=== PATIENT | male | born 1965 | race Caucasian/White ===

== ENCOUNTER 2021-10-30 06:00 | Day surgery (SDC) | payer OTHER ==
[~2021-10-30] VITALS: Ht 172.7 cm; Wt 83.3 kg
[~2021-10-30 06:00] MED LIST: ALFU10 PO; BLADDER PILL; Benadryl 50 mg50 MG PO; CEPH500 PO; HYDACE5 PO; IMMODIUM AD PO; METPRE4DP PO; MYRBETRIQ50 MG PO; OMEP20ER; PRAV20; PRAV20 PO; PRAVASTATIN SOD10 MG; Percocet 5-3251 EACH PO; Rapaflo8 MG PO; TAMS.4ER PO; TRAZ100; TRAZ100 PO; XOLAIR75 MG/0.5 SC; XYZAL5 MG PO; ZOLAIR INJ
[2021-10-30] MEDS ORDERED: Pravastatin Sod80 MG PO (06:42)
--- NOTE | 2021-10-30 12:34 | NUR ---
PATIENT ARRIVED FROM PACU TODAY 10/30/21 AT 1120. POD 0 LEFT TOTAL KNEE PATIENT IS A&OX4. HR IS MARISOL WELL BP BUT PATIENT DENIES HAVING SYMPTOMS OF LIGHT HEADEDNESS OR DIZZINESS. IV FLUIDS ARE RUNNING. PATIENT HAD A SPINAL AND HAS NO FEELING FROM WAIST DOWN (L3 DERMATOME). SUHAS WRAP ON THE RIGHT KNEE IS C/D/I. PEDAL PULSES ARE STRONG. PATIENT DENIES NAUSEA/VOMITING AND IS TOLERATING PO INTAKE. PATIENT IS LAYING IN BED WITH FRIEND AT BEDSIDE. CALL LIGHT WITHIN REACH.
--- NOTE | 2021-10-30 13:17 | NUR ---
ACCORDING TO THE VITALS MACHINE IN ROOM PATIENTS HR WILL INTERMITTENTLY DROP FROM 50BPM TO 30BPM BUT THEN BACK UP TO 50BPM. PATIENT DENIES ANY CARDIAC HX AND DOES NOT TAKE ANY CARDIAC MEDICATIONS AT HOME. PATIENT ALSO DENIES SHORTNESS OF BREATH, DIZZINESS, OR LIGHTHEADEDNESS WHEN HIS HR DROPS BELOW 50BPM. PATIENT IS LAYING IN BED EATING LUNCH AND DENIES NAUSEA/VOMITING. CALL LIGHT WITHIN REACH. EDUCATED PATIENT IF HE STARTS TO HAVE SYMPTOMS OF LIGHTHEADEDNESS OR DIZZINESS TO USE TO CALL LIGHT. PATIENT VERBALIZED UNDERSTANDING. CALLED [place] DR. LOZADA AND TOLD HIM ABOUT THE SITUATION. DR. LOZADA THEN REQUESTED THIS NURSE TO PUT IN ORDERS FOR TELE, 12 LEAD EKG, CBC, CMP, AND MAG LAB DRAW IN STAT. DR. LOZADA THEN SAID ONCE THE RESULTS CAME IN FROM THOSE ORDERS THAT HE WOULD VIEW THE OUTCOMES AND COME VISIT WITH THE PATIENT. LABS WERE JUST DRAWN WELL THE 12 LEAD. TELE IS BEING PLACED NOW. WILL CONTINUE TO MONITOR FOR SYMPTOMS OF LIGHTHEADEDNESS/DIZZINESS AND WELL MONITOR HR.
[2021-10-30 13:25] LABS: BASOPHILS ABSOLUTE AUTO 0.02 K/mm3 (0.00-0.23); BASOPHILS PERCENT AUTO 0 % (0-2); EOSINOPHILS PERCENT AUTO 0 % (0-6); Hematocrit 38.4 % (37.0-53.0); Hemoglobin 12.9 g/dL (13.5-17.5); IMMATURE GRAN ABSOLUTE AUTO 0.04 K/mm3 (0.00-0.10); IMMATURE GRAN PERCENT AUTO 1 % (0-1); LYMPHOCYTES ABSOLUTE AUTO 0.44 K/mm3 (0.84-5.20); LYMPHOCYTES PERCENT AUTO 5 % (21-46); MONOCYTES ABSOLUTE AUTO 0.07 K/mm3 (0.16-1.47); MONOCYTES PERCENT AUTO 1 % (4-13); Mean Corpuscular HGB 31.3 pg (26.0-34.0); Mean Corpuscular HGB Conc 33.6 g/dL (31.5-36.5); Mean Corpuscular Volume 93 fL (80-100); Mean Platelet Volume 10.7 fL (9.1-12.4); NEUTROPHILS ABSOLUTE AUTO 7.64 K/mm3 (1.96-9.15); NEUTROPHILS PERCENT AUTO 93 % (41-73); Platelet Count 225 K/mm3 (150-400); RDW Coefficient Variation 12.9 % (11.7-14.2); RDW Standard Deviation 44.1 fL (35.1-46.3); Red Blood Cell Count 4.12 M/mm3 (4.30-5.90); White Blood Cell Count 8.21 K/mm3 (4.00-11.30)
[2021-10-30 13:36] LABS: Albumin, Blood 3.3 g/dL (3.4-5.0); Albumin/Globulin Ratio 1.2 (0.8-1.8); Bilirubin, Total 0.2 mg/dL (0.1-1.0); Bun/Creatinine Ratio 25.3 (12.0-20.0); Calcium, Blood 8.6 mg/dL (8.5-10.1); Creatinine, Blood 0.83 mg/dL (0.60-1.20); Globulin, Blood 2.7 g/dL (2.2-4.0); Potassium, Blood 4.1 mmol/L (3.5-5.5)
--- NOTE | 2021-10-30 14:09 | NUR ---
SHIFT SUMMARY: POD 0 LEFT TOTAL KNEE PATIENT IS A&OX4. HR IS STILL MARISOL @ 50BPM AND IS INTERMITTENTLY DROPPING IN THE 30'S PER OFFICE SYSTEM ANALYST. PATIENT DENIES DIZZINESS OR LIGHTHEADEDNESS WHEN THIS HAPPENS. LABS AND 12 LEAD EKG ARE DONE AND TELE IS IN PLACE (SEE OTHER NURSING NOTE). OTHERWISE VS ARE WNL AND IS ON RA WITH >90% OXYGEN SATS. PATIENT DID RECIEVE A SPINAL BUT IS NOW ABLE TO MOVE LEGS AND TOES WITH NUMBNESS FROM KNEES DOWN. HE REPORTED 7/10 PAIN AND WAS GIVEN 2 PO KATHERINE'S. SUHAS WRAP ON LEFT KNEE IS C/D/I. POLAR PACK IN PLACE. IV IS RUNNING FLUIDS AND IS WNL. PATIENT IS TOLERATING PO INTAKE WITH NO NAUSEA OR VOMITING. PATIENT IS LAYING IN BED WATCHING TV. PATIENT HAS YET TO VOID BUT SHOULD BE BLADDER SCANNED NO LATER THAN 1630 SINCE THAT WOULD BE 6 HOURS SINCE THE LAST BLADDER SCAN. PATIENT REPORTS NO BLADDER PAIN OR FEELING OF NEEDING TO VOID AT THIS TIME. PATIENT WAS EDUCATED TO CALL ONCE HE IS FEELING BLADDER PAIN OR THE URGE TO VOID. PATIENT VERBALIZED UNDERSTANDING OF EDUCATION. CALL LIGHT WITHIN REACH. THE PLAN IS TO HAVE PAIN MANAGED AND WORK WITH PHYSICAL THERAPY WHEN NOT HAVING ANYMORE NUMBNESS OR TINGLING FROM SPINAL. WELL FIGURING OUT WHY THE PATIENTS HR DROPS INTERMITTENTLY. DR. LOZADA FROM [facility] IS AWARE AND STILL WAITING ON LAB RESULTS.
--- NOTE | 2021-10-30 14:44 | NUR ---
REPORT RECIEVED FROM SIMA ORDONEZ. ASSUMING PT CARE AT THIS TIME. PT IS A/O UPON ASSESSMENT. VSS. PT HELPED TO BATHROOM AND VOIDED. UP WITH SBA AND MOVED WELL, DENIED DIZZINESS. PT NOW IN RECLINER AND LLE ELEVATED, ICE PACK ON. CALL LIGHT IN REACH. WILL CTM.
--- NOTE | 2021-10-30 18:20 | NUR ---
SUMMARY: NO CHANGE SINCE ASSUMED CARE. PT DID GET TO WORK WITH THERAPY TONIGHT. IS WALKING TO BATHROOM WELL, HAS DENIED DIZZENESS. NO ACUTE EVENTS WITH TELE. PT IS VOIDING AND EATING WELL. WILL PASS REPORT TO ERICA RN.
[2021-10-31 05:23] LABS: BASOPHILS ABSOLUTE AUTO 0.04 K/mm3 (0.00-0.23); BASOPHILS PERCENT AUTO 0 % (0-2); EOSINOPHILS PERCENT AUTO 0 % (0-6); Hematocrit 34.3 % (37.0-53.0); Hemoglobin 11.7 g/dL (13.5-17.5); IMMATURE GRAN ABSOLUTE AUTO 0.11 K/mm3 (0.00-0.10); IMMATURE GRAN PERCENT AUTO 1 % (0-1); LYMPHOCYTES ABSOLUTE AUTO 1.54 K/mm3 (0.84-5.20); LYMPHOCYTES PERCENT AUTO 7 % (21-46); MONOCYTES ABSOLUTE AUTO 1.18 K/mm3 (0.16-1.47); MONOCYTES PERCENT AUTO 6 % (4-13); Mean Corpuscular HGB 31.2 pg (26.0-34.0); Mean Corpuscular HGB Conc 34.1 g/dL (31.5-36.5); Mean Corpuscular Volume 92 fL (80-100); Mean Platelet Volume 10.6 fL (9.1-12.4); NEUTROPHILS ABSOLUTE AUTO 18.05 K/mm3 (1.96-9.15); NEUTROPHILS PERCENT AUTO 86 % (41-73); Platelet Count 224 K/mm3 (150-400); RDW Coefficient Variation 12.6 % (11.7-14.2); RDW Standard Deviation 42.2 fL (35.1-46.3); Red Blood Cell Count 3.75 M/mm3 (4.30-5.90); White Blood Cell Count 20.92 K/mm3 (4.00-11.30)
[2021-10-31 05:43] LABS: Bun/Creatinine Ratio 21.2 (12.0-20.0); Calcium, Blood 8.8 mg/dL (8.5-10.1); Creatinine, Blood 0.9 mg/dL (0.60-1.20); Magnesium, Blood 2.1 mg/dL (1.6-2.4); Potassium, Blood 4.2 mmol/L (3.5-5.5)
--- NOTE | 2021-10-31 06:26 | NUR ---
SUMMARY PT CONTINUES TO HAVE HEART RATE IN 30'S AND 40'S. PT DENIES ANY DIZZINESS OR WEAKNESS. PT DRINKING FLUIDS AND VOIDING WELL. PT PAIN MANAGED WELL PER EMAR. PT HAS BEEN AMBULATING WELL WITHOUT ISSUE. PT HAS SLEPT SOME. CALL LIGHT IN REACH.
--- NOTE | 2021-10-31 11:24 | NUR ---
DISCHARGE SUMMARY PT A&OX4, VSS/RA, GAYLE PO, VOIDING WELL, AMB FWW & GB TO BRP/UP TO CHAIR, IV DC'D, TELE WAS NSR 70 BPM AT DC. LEFT FLOOR VIA WC WITH RN TO GO HOME WITH MOM, WITH ALL PERSONAL POSSESSIONS INCLUDING DC PACKET.
== END 2021-10-31 11:10 | disposition home or self-care (01) ==
LOC: SURS 06:00 → ORSCMMR 06:00 → ORD 07:30 → SURS 11:20 → ORSCMMR 10-31 11:10
PROVIDERS: Hospitalist; Orthopaedic Surgery
PROC: 8E0YXBZ Computer Assisted Procedure of Lower Extremity (ICD-10-PCS; principal; 2021-10-30 07:30)
PROC: 0SRD0J9 Replacement of Left Knee Joint with Synthetic Substitute, Cemented, Open Approach (ICD-10-PCS; principal; 2021-10-30 07:30)
DX: M17.12 Unilateral primary osteoarthritis, left knee (principal); Z87.891 Personal history of nicotine dependence; Z79.899 Other long term (current) drug therapy
CPT/HCPCS: 36415; 73560-LT; 80048; 80053; 83735; 85025; 93005; 93010; 97110; 97116; 97162; A9270; C1713; C1776; J0171; J0690; J0735; J1100; J1170; J1885; J2250; J2370; J2405; J2704; J2795; J3010; J7120

== ENCOUNTER 2023-11-18 10:30 | Day surgery (SDC) | payer OTHER ==
[2023-11-18] VITALS (14 sets, daily range): BP systolic 98–123; BP diastolic 50–87
[~2023-11-18] VITALS: Ht 172.7 cm; Wt 92.7 kg
[~2023-11-18 10:30] MED LIST changes: +Pravastatin Sod80 MG PO
[2023-11-18] MEDS ORDERED: Tranexamic Acid 100 ML IV SCH (11:15)
[2023-11-18] MEDS ORDERED: Acetaminophen 500 MG Tab PO SCH ×2 (11:15→16:00)
[2023-11-18] MEDS ORDERED: Chlorhexidine Mouth Care 15 ML UDC MT SCH (11:15)
[2023-11-18] MEDS ORDERED: OxyCODONE HCL 10 MG TABCR PO SCH (11:15)
[2023-11-18] MEDS ORDERED: Ropivacaine 0.5% HCl/Pf 123.125 MG,EPINEPHrine HCL 0.25 MG,Ketorolac Tromethamine 15 MG... INFIL SCH (11:15)
[2023-11-18] MEDS ORDERED: Lactated Ringer's 1,000 ML IV SCH ×2 (11:15→13:40)
[2023-11-18] MEDS ORDERED: CeFAZolin Sodium 2,000 MG in NS 100 ML IV SCH ×2 (11:15→22:00)
[2023-11-18] MEDS ORDERED: Vancomycin HCL 1,000 MG in NS 250 ML IV SCH (11:15)
[2023-11-18] MEDS ORDERED: Metoclopramide HCl 5MG / ML 2ML Vial IV PRN (13:40)
[2023-11-18] MEDS ORDERED: Magnesium Hydroxide Conc 10 ML UDC PO PRN (13:40)
[2023-11-18] MEDS ORDERED: Ondansetron HCl 2 MG / ML 2ML Vial IV PRN (13:40)
[2023-11-18] MEDS ORDERED: HYDROmorphone HCl/Pf 1MG SYR IV PRN (13:40)
[2023-11-18] MEDS ORDERED: Bisacodyl 10 MG Supp PR PRN (13:45)
[2023-11-18] MEDS ORDERED: Promethazine HCl 25 MG Tab PO PRN (13:45)
[2023-11-18] MEDS ORDERED: OxyCODONE HCL 5 MG TAB PO PRN ×2 (13:45)
[2023-11-18] MEDS ORDERED: DiphenhydrAMINE HCL 25 MG Cap PO PRN (13:45)
[2023-11-18] MEDS ORDERED: propofoL 100 ML IV ONE ×2 (13:47→15:32)
[2023-11-18] MEDS ORDERED: Midazolam HCl 1MG / ML 2ML Vial IV SCH (13:50)
[2023-11-18] MEDS ORDERED: propofoL 20 ML IV ONE (14:28)
[2023-11-18] MEDS ORDERED: FentaNYL Citrate 50 MCG/ML 2 ML Injection ONE (14:28)
[2023-11-18] MEDS ORDERED: Phenylephrine HCl 10mg/ml 1 ml Vial ONE (16:59)
[2023-11-18] MEDS ORDERED: Prochlorperazine Edisylate 10 mg Vial ONE (17:04)
[2023-11-18] MEDS ORDERED: Ondansetron HCl 2 MG / ML 2ML Vial ONE (17:04)
[2023-11-18] MEDS ORDERED: Midazolam HCl 1MG / ML 2ML Vial ONE (17:04)
[2023-11-18] MEDS ORDERED: Ketorolac Tromethamine 30mg Vial ONE (17:55)
[2023-11-18] MEDS ORDERED: Ketorolac Tromethamine 15mg Vial IV SCH (18:00)
--- NOTE | 2023-11-18 18:35 | NUR ---
PATIENT JUST ARRIVED FROM PACU TODAY. POD 0 RIGHT TOTAL KNEE PATIENT IS DROWSY BUT AWAKENS WITH VERBAL STIMULI AND RESPONDS APPROPRIATELY TO QUESTIONS. PATIENT DENIES PAIN AT THIS TIME DUE TO HIS SPINAL HE HAD DURING THE PROCEDURE. HE REPORTS NUMBNESS FROM THE TOP OF HIS KNEES DOWN BUT IS ABLE TO WIGGLE TOES. HIS RIGHT KNEE HAS SUHAS WRAP THAT IS C/D/I. PATIENT IS LAYING IN BED WITH CALL LIGHT IN REACH AND BED ALARM ON A PRECAUTION DUE TO HIM BEING VERY DROWSY.
[2023-11-18] MEDS ORDERED: Docusate Sodium 100 MG Cap PO SCH (21:00)
[2023-11-18] MEDS ORDERED: TraZODone HCl 100 MG Tab PO SCH (21:00)
[2023-11-19] MEDS ORDERED: Vancomycin HCL 1,000 MG in NS 250 ML IV SCH (01:00)
[2023-11-19 04:41] LABS: BASOPHILS ABSOLUTE AUTO 0.04 K/mm3 (0.00-0.23); BASOPHILS PERCENT AUTO 0 % (0-2); EOSINOPHILS PERCENT AUTO 0 % (0-6); Hematocrit 37.5 % (37.0-53.0); Hemoglobin 12.6 g/dL (13.5-17.5); IMMATURE GRAN ABSOLUTE AUTO 0.12 K/mm3 (0.00-0.10); IMMATURE GRAN PERCENT AUTO 1 % (0-1); LYMPHOCYTES ABSOLUTE AUTO 1.12 K/mm3 (0.84-5.20); LYMPHOCYTES PERCENT AUTO 5 % (21-46); MONOCYTES ABSOLUTE AUTO 1.07 K/mm3 (0.16-1.47); MONOCYTES PERCENT AUTO 5 % (4-13); Mean Corpuscular HGB Conc 33.6 g/dL (31.5-36.5); Mean Corpuscular Volume 92 fL (80-100); Mean Platelet Volume 9.8 fL (9.1-12.4); NEUTROPHILS PERCENT AUTO 89 % (41-73); Platelet Count 242 K/mm3 (150-400); RDW Coefficient Variation 12.8 % (11.7-14.2); RDW Standard Deviation 43.9 fL (35.1-46.3); Red Blood Cell Count 4.06 M/mm3 (4.30-5.90); White Blood Cell Count 21.25 K/mm3 (4.00-11.30)
[2023-11-19 04:58] LABS: Bun/Creatinine Ratio 20.2 (12.0-20.0); Calcium, Blood 8.2 mg/dL (8.5-10.1); Creatinine, Blood 0.89 mg/dL (0.60-1.20); Magnesium, Blood 1.9 mg/dL (1.6-2.4); Potassium, Blood 4.2 mmol/L (3.5-5.5)
--- NOTE | 2023-11-19 05:39 | NUR ---
SHIFT SUMMARY POD 1 R TKA PT ABLE TO GET SOME REST DURING THE NIGHT. PAIN MANAGED PER EMAR. PT TOLERATING PO INTAKE. VOIDING WELL. PT AMB TO AND FROM THE BATHROOM. 1P SBA WITH FWW AND GB. SUHAS TO THE R KNEE IS C/D/I. DENIES ANY N/T TO EXT'S. VSS. PLAN TO HAVE THERAPY THIS MORNING THEN D/C HOME. NO OTHER CONCERNS AT THIS TIME, CALL LIGHT WITHIN REACH
[2023-11-19 05:51] VITALS: BP 97/53
[2023-11-19 07:48] VITALS: BP 101/70
[2023-11-19] MEDS ORDERED: ASPI81CH PO (08:52)
[2023-11-19] MEDS ORDERED: OXAYDO5 M1 PO (08:53)
[2023-11-19] MEDS ORDERED: SULTRIDS PO (08:53)
[2023-11-19] MEDS ORDERED: PROM25 PO (08:53)
[2023-11-19] MEDS ORDERED: Aspirin 81 MG Chew PO SCH (09:00)
[2023-11-19] MEDS ORDERED: Pravastatin Sodium 20 MG Tab PO SCH (09:00)
[2023-11-19] MEDS ORDERED: Trimethoprim/Sulfamethoxazole DS Tab PO SCH (09:00)
--- NOTE | 2023-11-19 10:23 | NUR ---
DISCHARGE NOTE: PATIENT WAS EDUCATED ON DISCHARGE INSTRUCTIONS. HE VERBALIZED UNDERSTANDING OF INSTRUCTIONS AND HAD NO FURTHER QUESTIONS AT THIS TIME. IV WAS TAKEN OUT AND WNL. PAIN IS MANAGED WITH PO PAIN MEDS. HIS RIGHT KNEE HAS AN AQUACEL DRESSING THAT DR. STONE CHANGED THIS MORNING THAT IS C/D/I. HE DENIES NUMBNESS OR TINGLING IN ALL EXTREMITIES. HE IS A SBA WITH FWW AND GAIT BELT. PATIENT IS TOLERATING PO INTAKE AND IS VOIDING. PATIENT IS DRESSED AND HAS PERSONAL ITEMS IN THE ROOM GATHERED. HE IS SITTING IN THE RECLINER CHAIR WITH CALL LIGHT IN REACH WAITING FOR HIS MOTHER TO COME PICK HIM UP TO TAKE HIM HOME.
--- NOTE | 2023-11-19 10:55 | NUR ---
PATIENT WAS WHEELCHAIRED OUT TO HIS MOTHERS CAR TO BE TAKEN HOME. HE HAS ALL OF HIS PERSONAL BELONGINGS IN THE ROOM GATHERED. PATIENT WAS ALSO GIVEN A COUPLE OF EXTRA AQUACEL DRESSINGS FOR AT HOME DRESSING CHANGES. PATIENTS PERSCRIPTION OF [facility] WAS FAXED TO [facility] THIS MORNING THAT WAS CONFIRMED TO GO THROUGH.
[2023-11-30] MEDS ORDERED: Omalizumab 150 MG Syringe SC SCH (09:00)
== END 2023-11-19 10:56 | disposition home or self-care (01) ==
LOC: ORSCMMR 10:30 → ORD 14:30 → ORSCMMR 14:30 → SURS 18:15 → ORSCMMR 11-19 10:56
PROVIDERS: Orthopaedic Surgery
PROC: 0SRC0J9 Replacement of Right Knee Joint with Synthetic Substitute, Cemented, Open Approach (ICD-10-PCS; principal; 2023-11-18 14:30)
DX: M17.11 Unilateral primary osteoarthritis, right knee (principal); Z96.652 Presence of left artificial knee joint; E78.00 Pure hypercholesterolemia, unspecified; Z79.899 Other long term (current) drug therapy; Z87.891 Personal history of nicotine dependence
CPT/HCPCS: 36415; 73560-RT; 80048; 83735; 85025; 97110; 97116; 97161; 97530; A9270; C1713; C1776; J0171; J0690; J0735; J0780; J1885; J2250; J2371; J2405; J2704; J2795; J3010; J3370; J7050; J7120

== ENCOUNTER → 2024-02-29 | Outpatient (CLI) | payer OTHER ==
[~2024-02-29] MED LIST changes: +ASPI81CH PO; +OXAYDO5 M1 PO; +PROM25 PO; +SULTRIDS PO
== END ==
LOC: LAB SHORT 08:37 → LAB 08:37
DX: R10.13 Epigastric pain (principal)
CPT/HCPCS: 87338

== ENCOUNTER 2025-03-08 11:17 | Day surgery (SDC) | payer OTHER ==
[~2025-03-08] VITALS: Ht 172.7 cm; Wt 96.3 kg
[2025-03-08] VITALS (15 sets, daily range): BP systolic 104–132; BP diastolic 69–94
[~2025-03-08 11:17] MED LIST changes: +Adipex-P37.5 M1 PO; +EPIPEN0.3 MG/0.3 IM; +PANT40 PO; -TRAZ100 PO; +TRAZ150T57 PO; +XOLAIR150 MG/1 M SC
[2025-03-08] MEDS ORDERED: FentaNYL Citrate 50 MCG/ML 5 ML Injection ONE (12:25)
--- NOTE | 2025-03-08 12:44 | NUR ---
Ambulatory in Day Surgery. History, Chart, Medications and Allergies reviewed before start of procedure. Lungs clear T/O to Auscultation. Patient confirms NPO status and agrees with scheduled surgery. Pre-Op teaching done. Pt verbalizes understanding. Patient States Post-Procedure ride home has been arranged. Patient reports completing Chlorhexadine shower X2 prior to admission to hospital.
[2025-03-08] MEDS ORDERED: Lidocaine HCL 1% 10 ML MDV ONE (12:57)
[2025-03-08] MEDS ORDERED: Bupivacaine HCl 2.5 MG/ML 10ML P/F Injection ONE (12:57)
[2025-03-08] MEDS ORDERED: CeFAZolin Sodium 2,000 MG in NS 100 ML IV SCH (13:00)
[2025-03-08] MEDS ORDERED: Midazolam HCl 1MG / ML 2ML Vial ONE (13:12)
[2025-03-08] MEDS ORDERED: Dexamethasone Sod Phos 10 MG/ML 1ML VIAL ONE (13:43)
[2025-03-08] MEDS ORDERED: Ondansetron HCl 2 MG / ML 2ML Vial ONE (13:43)
[2025-03-08] MEDS ORDERED: Ondansetron HCl 2 MG / ML 2ML Vial IV PRN (14:30)
[2025-03-08] MEDS ORDERED: HYDROmorphone HCl/Pf 1MG SYR IV PRN ×2 (14:30→14:35)
[2025-03-08] MEDS ORDERED: FentaNYL Citrate 50 MCG/ML 2 ML Injection IV PRN ×2 (14:30→14:35)
[2025-03-08] MEDS ORDERED: HYDROmorphone HCl/Pf 1MG SYR ONE ×2 (14:38→15:01)
[2025-03-08] MEDS ORDERED: Ketorolac Tromethamine 30mg Vial ONE (14:59)
--- NOTE | 2025-03-08 16:07 | NUR ---
Discharge instructions reviewed with patient. Patient verbalizes understanding. Copy given to patient to take home. Dressing c/d/i. Cap refill <3 sec. 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 Patient States Post-Procedure ride home has been arranged. Discharged via wheelchair to private car for ride home.
== END 2025-03-08 16:13 | disposition home or self-care (01) ==
LOC: ORSCMMR 11:17 → ORD 12:45 → ORSCMMR 12:45
PROVIDERS: Orthopaedic Surgery
PROC: 0PSV04Z Reposition Left Finger Phalanx with Internal Fixation Device, Open Approach (ICD-10-PCS; principal; 2025-03-08 13:00)
DX: S62.617A Displaced fracture of proximal phalanx of left little finger, initial encounter for closed fracture (principal); Z79.899 Other long term (current) drug therapy
CPT/HCPCS: A9270; J0690; J1100; J1171; J1885; J2003; J2250; J2405; J2704; J3010; J7120